=== PATIENT | female | born 1945 | race Caucasian/White ===

== ENCOUNTER → 2018-02-11 | Outpatient (CLI) | payer OTHER ==
[~2018-02-11] MED LIST: ASPI81CH PO; CHOL10002 PO; FISH1000 PO; HYDR1TAB94 PO; Hair, Skin & N1 EACH PO; IBUP800 PO; KRILL OIL 1,001 EAC1 PO; LEVFLO500 PO; LEVO750 PO; LEVSOD100 PO; Naprosyn375 MG PO; PARO20 PO; Percocet 5-3251 EACH PO; Valium5 MG PO; Vitamin B Comple1 EA PO; Zofran4 MG PO
== END ==
LOC: LAB SHORT 14:47 → LAB 14:47
PROVIDERS: Nurse Practitioner Women's Health
DX: Z12.72 Encounter for screening for malignant neoplasm of vagina (principal); Z91.89 Other specified personal risk factors, not elsewhere classified
CPT/HCPCS: 87624; G0123

== ENCOUNTER 2019-02-16 13:18 | Inpatient (IN) | payer OTHER ==
[~2019-02-16] VITALS: Ht 167.6 cm; Wt 72.7 kg
[~2019-02-16 13:18] MED LIST changes: -ASPI81CH PO; +Aspirin EC81 MG PO; -LEVSOD100 PO; +LEVSOD88 PO
[2019-02-16] MEDS ORDERED: ATOR20 PO (13:55)
[2019-02-16 14:36] LABS: BASOPHILS ABSOLUTE AUTO 0.07 K/mm3 (0.00-0.23); BASOPHILS PERCENT AUTO 0 % (0-2); EOSINOPHILS ABSOLUTE AUTO 0.14 K/mm3 (0.00-0.68); EOSINOPHILS PERCENT AUTO 1 % (0-6); Hematocrit 38.9 % (33.0-51.0); Hemoglobin 12.7 g/dL (11.5-16.0); IMMATURE GRAN ABSOLUTE AUTO 0.17 K/mm3 (0.00-0.10); IMMATURE GRAN PERCENT AUTO 1 % (0-1); LYMPHOCYTES PERCENT AUTO 11 % (21-46); MONOCYTES ABSOLUTE AUTO 1.32 K/mm3 (0.16-1.47); MONOCYTES PERCENT AUTO 7 % (4-13); Mean Corpuscular HGB Conc 32.6 g/dL (31.5-36.5); Mean Corpuscular Volume 95 fL (80-100); Mean Platelet Volume 10.2 fL (9.1-12.4); NEUTROPHILS ABSOLUTE AUTO 14.16 K/mm3 (1.96-9.15); NEUTROPHILS PERCENT AUTO 79 % (41-73); Platelet Count 296 K/mm3 (150-400); RDW Coefficient Variation 13.5 % (11.7-14.2); RDW Standard Deviation 47.2 fL (35.1-46.3); White Blood Cell Count 17.86 K/mm3 (4.00-11.30)
[2019-02-16 14:51] LABS: International Normalized Ratio 1.26; Prothrombin Time Results 13.1 Sec (9.7-11.5)
[2019-02-16 15:01] LABS: Albumin, Blood 2.6 g/dL (3.4-5.0); Bilirubin, Total 0.9 mg/dL (0.1-1.0); Bun/Creatinine Ratio 25.5 (12.0-20.0); Calcium, Blood 7.5 mg/dL (8.5-10.1); Creatinine, Blood 1.06 mg/dL (0.40-1.00); Globulin, Blood 2.5 g/dL (2.2-4.0); Potassium, Blood 3.6 mmol/L (3.5-5.5); Total Protein, Blood 5.1 g/dL (6.4-8.2)
--- NOTE | 2019-02-16 15:30 | NUR ---
Recieved report from [facility]UE[facility]. Patient arrived via gurney on RA and Aggrastat gtt at 13.5 ml and will re-evaluate gtt with new labs. She is alert and oriented and is able to communicate her needs. She has TR Band site right wrist. is at side. Shortly after arrival she ambulated to bedside cammode with SBA for line and tubes, steady on feet. Hooked up to Monitor and Dr North came to see patient and stated she could go home in a couple days. she has fluids from [facility] infusing at roughly 200ml/hr with drip set. No oozing or hematoma at site of TR Band and is C/D/I.
[2019-02-16] MEDS ORDERED: VITAMIN D34000 UNIT PO (15:41)
--- NOTE | 2019-02-16 17:30 | NUR ---
Aggrastat drip reset to CRCL of less then 60 and was 54 and gtt was set at 6.75ml/hr. She has been up to bathroom several more times and is more steady every time. Let 5cc of air from TR Band and no oozing or swelling. and had small area of bruising and not hard but soft and palpable. VSS.
--- NOTE | 2019-02-16 19:58 | NUR ---
Marked area with nurse of bruising area at TR Band. Aggrastat runs until 10 pm. There is a total of 3cc in band.
--- NOTE | 2019-02-16 21:20 | NUR ---
PM NOTE. ASSUMED CARE OF PT APROX 1900, PT IS A&Ox4 AND SBA IN THE ROOM. PT IS S/P ANGIO W/STENT PLACEMENT. MONITORS INTACT, NSR IN THE 70'S, PT'S BP 165/75. NO EDEMA NOTED ON ASSESSMENT. PT'S L/S CLEAR T/O RR 17, EVEN AND UNLABORED 98% ON RA. BT PRESENT AND HYPOACTIVE, ABD IS SOFT AND NONTENDER TO PALP. RIGHT WRIST ANGIO SITE HAS SMALL AMOUNT OF BLOOD AROUND THE AREA, SMALL BRUISED AREA NOTED ABOVE THE TR BAND AND AT THE BASE OF THE THUMB. PT WAS ON AGGRASTAT AT 6.75. THIS WAS STOPPED PER PROVIDER'S ORDERS AT 2050. PT C/O OF SEVERE HEADACHE, PROVIDER CALLED AND ORDERS OBTAINED FOR TYLENOL. CALL LIGHT IN REACH, BED IS LOCKED AND LOW WILL CONTINUE TO MONITOR.
[2019-02-17 03:35] LABS: BASOPHILS ABSOLUTE AUTO 0.04 K/mm3 (0.00-0.23); BASOPHILS PERCENT AUTO 0 % (0-2); EOSINOPHILS ABSOLUTE AUTO 0.08 K/mm3 (0.00-0.68); EOSINOPHILS PERCENT AUTO 1 % (0-6); Hemoglobin 14.1 g/dL (11.5-16.0); IMMATURE GRAN ABSOLUTE AUTO 0.04 K/mm3 (0.00-0.10); IMMATURE GRAN PERCENT AUTO 0 % (0-1); LYMPHOCYTES ABSOLUTE AUTO 2.21 K/mm3 (0.84-5.20); LYMPHOCYTES PERCENT AUTO 18 % (21-46); MONOCYTES ABSOLUTE AUTO 1.19 K/mm3 (0.16-1.47); MONOCYTES PERCENT AUTO 10 % (4-13); Mean Corpuscular HGB 30.9 pg (26.0-34.0); Mean Corpuscular Volume 96 fL (80-100); Mean Platelet Volume 10.2 fL (9.1-12.4); NEUTROPHILS ABSOLUTE AUTO 8.93 K/mm3 (1.96-9.15); NEUTROPHILS PERCENT AUTO 72 % (41-73); Platelet Count 283 K/mm3 (150-400); RDW Standard Deviation 49.1 fL (35.1-46.3); Red Blood Cell Count 4.57 M/mm3 (3.80-5.20); White Blood Cell Count 12.49 K/mm3 (4.00-11.30)
[2019-02-17 03:53] LABS: Albumin, Blood 3.2 g/dL (3.4-5.0); Albumin/Globulin Ratio 1.1 (0.8-1.8); Bilirubin, Total 0.9 mg/dL (0.1-1.0); Bun/Creatinine Ratio 22.2 (12.0-20.0); Calcium, Blood 8.3 mg/dL (8.5-10.1); Creatinine, Blood 0.99 mg/dL (0.40-1.00); Potassium, Blood 4.2 mmol/L (3.5-5.5); Total Protein, Blood 6.2 g/dL (6.4-8.2)
--- NOTE | 2019-02-17 05:26 | NUR ---
SHIFT SUMMARY. NO ACUTE CHANGES NOTED THIS SHIFT. PT'S VS HAVE BEEN STABLE. PT DENIES ANY CHEST PAIN/PRESSURE, N/V OR SOB. PT HAS BEEN UP OUT OF BED SEVERAL TIMES TO THE TOILET TO VOID CLEAR YELLOW URINE. NO CARDIAC EVENTS NOTED ON THE MONITOR. PT'S RADIAL SITE HAS BRUSING PROXIMAL TO THE TR BAND, THIS HAS GROWN SLIGHTLY FROM THE START OF THIS SHIFT, THE AREA IS SLIGHTLY FIRM WELL. RIGHT RADIAL PULSE IS NOTED, PT DENIES ANY NUMBNESS/TINGLING TO HER RIGHT HAND/FINGERS. CALL LIGHT IN REACH, BED IS LOCKED AND LOW WILL CONTINUE TO MONITOR UNTIL REPORT IS GIVEN TO ONCOMING RN.
--- NOTE | 2019-02-17 10:17 | NUR ---
PT IS RESTING WELL W/O S/S OF SOB, CHEST PAIN, N/V. PT DOES C/O FAITH AT 6/10 AND RELIEVED WITH TYLENOL NOTED. PT TAKING PO WELL. AM MEDS CLARRIFIED AND GIVEN. PT HAVING LEG CRAMPS ON LLE AND ASSISTED WITH POSITON CHANGE. IN TO VISIT. VSS. PT UP TO VOID WITH JUST SBA WITH LINES. R TR SITE IS BRUISED W/O CHANGES AND WRIST BOARD IN PLACE AND COACHING DONE FOR SITE CARE.
--- NOTE | 2019-02-17 10:59 | NUR ---
Echocardiogram completed.
--- NOTE | 2019-02-17 14:45 | NUR ---
1345 PT UP TO WALK WITH SECURITIES TELLER AROUND BOTH SIDES OF UNIT ON RA AND HAD NO SYMPTOMS. PT FELT "GOOD UP WAKING" AND IS MOTIVATED TO GO HOME. DR GONZALEZ REQUESTING PT TO BE DISCHARGED AROUND 1700 THIS PM.
[2019-02-17] MEDS ORDERED: LISI5 PO (17:40)
[2019-02-17] MEDS ORDERED: CLOP75 PO (17:40)
[2019-02-17] MEDS ORDERED: METO50ER PO (17:41)
--- NOTE | 2019-02-17 18:30 | NUR ---
PT DI/C INSTRUCTIONS GIVEN. MEDICATIONS CALLED IN TO [facility] PER PT REQUEST. WAS ALSO IN ROOM WITH INSTRUCTION TIME. PT BELONGINGS SENT HOME. DISCHARGE PACKET AND STENT CARDS IDENTIFIED FOR PT. L AC IV D/C AND INTACT. PT TO [facility] VIA W/C TO CAR AT 1815. AMBULATING WITH GOOD BALANCE. R TR SITE INTACT AND DSG IN PLACE.
== END 2019-02-17 18:15 | disposition home or self-care (01) | DRG 247 ==
LOC: ER 13:18 → ICUE 13:25 → ICUW 13:26 → ICUE 13:26 → ICUW 13:35 → ER 13:35 → ICUE 15:09
PROVIDERS: ADMIT Internal Medicine Interventional Cardiology
PROC: 027034Z Dilation of Coronary Artery, One Artery with Drug-eluting Intraluminal Device, Percutaneous Approach (ICD-10-PCS; principal; 2019-02-16)
PROC: B2111ZZ Fluoroscopy of Multiple Coronary Arteries using Low Osmolar Contrast (ICD-10-PCS; 2019-02-16)
DX: I21.11 ST elevation (STEMI) myocardial infarction involving right coronary artery (principal); Z79.82 Long term (current) use of aspirin; Z79.02 Long term (current) use of antithrombotics/antiplatelets
CPT/HCPCS: 36415; 80053; 84484; 85025; 85610; 85730; 93005; 93010; 93306; 93454; 96374; 99285-25; C1725; C1769; C1874; C1887; C1894; C9600; J0461; J1644; J2250; J2405; J3010; J3246; J7030; Q9967

== ENCOUNTER → 2019-06-28 | Outpatient (CLI) | payer OTHER ==
[~2019-06-28] MED LIST changes: +ATOR20 PO; +CLOP75 PO; +LISI5 PO; +METO50ER PO; +VITAMIN D34000 UNIT PO
[2019-06-29 15:07] LABS: HPV 16 Negative (Negative); HPV 18 Negative (Negative); HPV OTHER HR TYPES Negative (Negative)
== END | disposition home or self-care (01) ==
LOC: LAB SHORT 11:34 → LAB 11:34
PROVIDERS: Nurse Practitioner Women's Health
DX: Z12.72 Encounter for screening for malignant neoplasm of vagina (principal); Z91.89 Other specified personal risk factors, not elsewhere classified
CPT/HCPCS: 87624; G0123

== ENCOUNTER 2022-04-18 07:19 | Day surgery (SDC) | payer OTHER ==
[~2022-04-18] VITALS: Ht 157.5 cm; Wt 66.3 kg
== END 2022-04-18 09:20 | disposition home or self-care (01) ==
LOC: ORSCSDS 07:19
PROVIDERS: Orthopaedic Surgery
PROC: 0LN70ZZ Release Right Hand Tendon, Open Approach (ICD-10-PCS; principal; 2022-04-18 08:30)
PROC: 01N50ZZ Release Median Nerve, Open Approach (ICD-10-PCS; principal; 2022-04-18 08:30)
DX: G56.01 Carpal tunnel syndrome, right upper limb (principal); M65.341 Trigger finger, right ring finger; I10 Essential (primary) hypertension; E78.00 Pure hypercholesterolemia, unspecified; F41.9 Anxiety disorder, unspecified; I25.2 Old myocardial infarction; Z79.899 Other long term (current) drug therapy
CPT/HCPCS: J1100; J2250; J2370; J2405; J2704; J2765; J3010

== ENCOUNTER 2023-06-25 12:04 | Emergency (ER) | payer OTHER ==
[~2023-06-25] VITALS: Ht 157.5 cm; Wt 64.9 kg
[2023-06-25 12:43] LABS: BASOPHILS ABSOLUTE AUTO 0.07 K/mm3 (0.00-0.23); BASOPHILS PERCENT AUTO 1 % (0-2); EOSINOPHILS ABSOLUTE AUTO 0.38 K/mm3 (0.00-0.68); EOSINOPHILS PERCENT AUTO 5 % (0-6); IMMATURE GRAN ABSOLUTE AUTO 0.02 K/mm3 (0.00-0.10); IMMATURE GRAN PERCENT AUTO 0 % (0-1); LYMPHOCYTES ABSOLUTE AUTO 2.39 K/mm3 (0.84-5.20); LYMPHOCYTES PERCENT AUTO 30 % (21-46); MONOCYTES ABSOLUTE AUTO 0.64 K/mm3 (0.16-1.47); MONOCYTES PERCENT AUTO 8 % (4-13); Mean Corpuscular HGB 30.7 pg (26.0-34.0); Mean Corpuscular HGB Conc 32.6 g/dL (31.5-36.5); Mean Corpuscular Volume 94 fL (80-100); Mean Platelet Volume 10.7 fL (9.1-12.4); NEUTROPHILS ABSOLUTE AUTO 4.55 K/mm3 (1.96-9.15); NEUTROPHILS PERCENT AUTO 57 % (41-73); Platelet Count 272 K/mm3 (150-400); RDW Coefficient Variation 13.2 % (11.7-14.2); RDW Standard Deviation 45.7 fL (35.1-46.3); Red Blood Cell Count 4.88 M/mm3 (3.80-5.20); White Blood Cell Count 8.05 K/mm3 (4.00-11.30)
[2023-06-25] MEDS ORDERED: PARO10 PO (13:21)
[2023-06-25 13:22] LABS: Albumin, Blood 3.4 g/dL (3.4-5.0); Bilirubin, Total 0.5 mg/dL (0.1-1.0); Bun/Creatinine Ratio 24.2 (12.0-20.0); Calcium, Blood 8.9 mg/dL (8.5-10.1); Creatinine, Blood 0.95 mg/dL (0.40-1.00); Globulin, Blood 3.3 g/dL (2.2-4.0); Potassium, Blood 4.1 mmol/L (3.5-5.5); Total Protein, Blood 6.7 g/dL (6.4-8.2)
[2023-06-25 14:05] LABS: Magnesium, Blood 2.2 mg/dL (1.6-2.4); Thyroid Stimulating Hormone 0.752 uIU/mL (0.360-4.800)
[2023-06-25] MEDS ORDERED: MECL25 PO (14:31)
[2023-06-25 14:46] VITALS: BP 159/75
== END 2023-06-25 14:50 | disposition home or self-care (01) ==
LOC: ER 12:04
PROVIDERS: Physician Assistant; Student in an Organized Health Care Education/Training Program
DX: R42 Dizziness and giddiness (principal); R26.81 Unsteadiness on feet; R53.83 Other fatigue; I10 Essential (primary) hypertension; E03.9 Hypothyroidism, unspecified; Z87.891 Personal history of nicotine dependence; Z88.2 Allergy status to sulfonamides; Z79.899 Other long term (current) drug therapy; Z79.82 Long term (current) use of aspirin
CPT/HCPCS: 70450; 80053; 83735; 84443; 85025; 93005; 93010; 99284-25; A9270